=== PATIENT | female | born 1990 | race Caucasian/White ===

== ENCOUNTER 2018-05-22 17:05 | Emergency (ER) | payer SELFPAY ==
[~2018-05-22] VITALS: Ht 170.2 cm; Wt 54.4 kg
[~2018-05-22 17:05] MED LIST: LAMICTAL; VIMPAT100 MG; ZONEGRAN100 MG
--- OUTSIDE RECORDS SUMMARY | 2018-05-22 17:08 | XMS REPORT | Encounter Summary ---
Author Organization Unknown Address [address] [place] [address] Phone [phone] Care Team Providers Care Book Coverer Name Role Phone Conrado Venegas 3 [phone] Reason for Visit Medical Complaint Instructions 1. Dysuria urinalysis, dipstick painful urination (dysuria): care instructions Macrobid 100 mg capsule culture, urine CT + NG DNA, PCR, unspecified specimen Pyridium 100 mg tablet Discussion Note Pt in NAD, understands all information provided Plan of Care Patient Instructions Pt will take meds as prescribed with 8oz glass of water. Please seek care (PCP, Urgent Care, ER) or [facility] if symptoms get worse or do not resolve in 1 week. Reminders Provider Appointments None recorded. Lab Urinalysis, Dipstick 11/27/2016 [facility] Culture, Urine 11/27/[address] [facility] [address] + NG DNA, PCR, Unspecified Specimen 11/27/2016 [facility] Referral None recorded. Procedures None recorded. Surgeries None recorded. Imaging None recorded. Medications Name Start Date Jolivette 0.35 mg tablet TK 1 T PO QD Macrobid 100 mg capsule Take 1 capsule every 12 hours by oral route. Pyridium 100 mg tablet Take 1 tablet 3 times a day by oral route for 2 days. zonisamide 100 mg capsule TK 3 C PO QHS Medications Administered None recorded. Vitals Height Weight BMI Blood Pressure 5 ft 7 in 110 lbs 17.2 kg/m2 124/74 mm[Hg] Lab Results Date Name Specimen Result Interpretation Description Value Range Status Address Urinalysis, Dipstick Color : Yellow [facility]: [address] [place] [address] Clarity : Cloudy [facility]: [address] [place] [address] Leukocytes : Large [facility]: [address] [place] [address] Nitrites : Negative [facility]: [address] [place] [address] Urobilinogen : Normal [facility]: [address] [place] [address] Protein : 30 [facility]: [address] [place] [address] Ph : 7.5 [facility]: [facility] Blood : Non-hemolized Trace [facility]: [facility] Specific [place] : 1.005 [facility]: 9 [facility] Ketones : Negative [facility]: 9 [facility] Bilirubin : Small [facility]: 9 [facility] Glucose Negative [facility]: 9 [facility] Allergies Code Code System Name Reaction Severity Status Onset NKDA Problems None recorded. Procedures None recorded. Vaccine List None recorded. Social History Smoking Status Current Every Day Smoker Past Encounters 11/27/2016 Dysuria Arturo Ray, HOME ENERGY CONSULTANT-C: [address] [place] [address], Ph. History of Present Illness [id number] Reported By: Patient HPI: Location: no radiation. Quality: pressure. Context: not sexually active, no known exposure to STD, no prior history of STDs, unprotected intercourse. Associated Symptoms: no fever/chills, no flank pain, no jaundice, no blood in the urine, no vaginal discharge, no blisters on genitals, no rash on genitals, no muscle aches, no headache, pain during urination, burning sensation during urination, urgency, hesitancy, urinary frequency, feeling of incomplete emptying of bladder Review of Systems:ROS as noted in the HPI Review of Systems Basic Reported By: Patient Physical Exam Adult Basic, Adult Female Complete Reported By: Patient Constitutional: General Appearance: healthy-appearing, well-nourished, well-developed. Level of Distress: NAD. Ambulation: ambulating normally Psychiatric: Mental Status: active and alert. Orientation: to time, to place, to person Neurologic: Gait and Station: normal gait, normal station Abdomen: Inspection and Palpation: soft, non-distended, no tenderness, no guarding, no rebound tenderness, no masses, no CVA tenderness Female : External genitalia: normal, no lesions, no rash; pt denies all. Vagina: purulent discharge; pt states she has a white-yellow d/c. Bladder and Urethra: normal bladder and urethra (except where noted)
--- OUTSIDE RECORDS SUMMARY | 2018-05-22 17:08 | XMS REPORT | Continuity of Care Document ---
Author Author [facility] Interface Address Unknown Phone Unavailable Problems Problem Status Onset Date Classification Date Reported Comments Source Dysuria 11/27/2016 Diagnosis 11/27/2016 [facility] Exudative pharyngitis 06/26/2016 Diagnosis 06/27/2016 [facility] Influenza-like symptoms 06/26/2016 Diagnosis 06/27/2016 [facility] Medications Medication Details Route Status Patient Instructions Ordering Provider Order Date Source Jolivette 0.35 mg tablet Jolivette 0.35 mg tablet TK 1 T PO QD Active [facility] NITROFURANTOIN, MACROCRYSTALS 25 MG / Nitrofurantoin, Monohydrate 75 MG Oral Capsule [Macrobid] Macrobid 100 mg capsule Take 1 capsule every 12 hours by oral route. Active [facility] Phenazopyridine hydrochloride 100 MG Oral Tablet [Pyridium] Pyridium 100 mg tablet Take 1 tablet 3 times a day by oral route for 2 days. Active [facility] zonisamide 100 MG Oral Capsule zonisamide 100 mg capsule TK 3 C PO QHS Active [facility] Acetaminophen 300 MG / Codeine Phosphate 30 MG Oral Tablet acetaminophen 300 mg-codeine 30 mg tablet Active [facility] Amoxicillin 875 MG Oral Tablet amoxicillin 875 mg tablet Take 1 tablet every 12 hours by oral route for 10 days. Active [facility] Ciprofloxacin 500 MG Oral Tablet ciprofloxacin 500 mg tablet Active [facility] lamotrigine 25 MG Oral Tablet lamotrigine 25 mg tablet Active [facility] Levofloxacin 500 MG Oral Tablet levofloxacin 500 mg tablet Active [facility] Lidocaine Hydrochloride 20 MG/ML Mucous Membrane Topical Solution Lidocaine Viscous 2 % mucosal solution Gargle 15 ml by mouth every 3 hours prn and spit out. Active [facility] Sulfamethoxazole 800 MG / Trimethoprim 160 MG Oral Tablet sulfamethoxazole 800 mg-trimethoprim 160 mg tablet Active [facility] zonisamide 100 MG Oral Capsule [Zonegran] Zonegran 100 mg capsule TAKE THREE CAPSULES BY MOUTH EVERY EVENING AT BEDTIME Active [facility] Allergies, Adverse Reactions, Alerts Substance Category Reaction Severity Reaction type Status Date Reported Comments Source Immunizations Immunization Date Given Site Status Last Updated Comments Source Results Order Name Results Value Reference Range Date Interpretation Comments Source Urinalysis macro (dipstick) panel - Urine COLOR : Yellow 11/27/2016 [facility] Urinalysis macro (dipstick) panel - Urine CLARITY : Cloudy 11/27/2016 [facility] Urinalysis macro (dipstick) panel - Urine LEUKOCYTES : Large 11/27/2016 [facility] Urinalysis macro (dipstick) panel - Urine NITRITES : Negative 11/27/2016 [facility] Urinalysis macro (dipstick) panel - Urine UROBILINOGEN : Normal 11/27/2016 [facility] Urinalysis macro (dipstick) panel - Urine PROTEIN : 30 11/27/2016 [facility] Urinalysis macro (dipstick) panel - Urine pH : 7.5 11/27/2016 [facility] Urinalysis macro (dipstick) panel - Urine BLOOD : Non-hemolized Trace 11/27/2016 [facility] Urinalysis macro (dipstick) panel - Urine SPECIFIC GRAVITY : 1.005 11/27/2016 [facility] Urinalysis macro (dipstick) panel - Urine KETONES : Negative 11/27/2016 [facility] Urinalysis macro (dipstick) panel - Urine BILIRUBIN : Small 11/27/2016 [facility] Urinalysis macro (dipstick) panel - Urine GLUCOSE Negative 11/27/2016 [facility] Influenza A negative 06/26/2016 [facility] Influenza B negative 06/26/2016 [facility] RESULT negative 06/26/2016 [facility] SWAB LOCATION Left and Right tonsillar pillars 06/26/2016 [facility] Vital Signs Vital Sign Value Date Comments Source Diastolic (mm Hg) 74 11/27/2016 [facility] Height 67 11/27/2016 [facility] Systolic (mm Hg) 124 11/27/2016 [facility] Weight 110 11/27/2016 [facility] Diastolic (mm Hg) 77 06/26/2016 [facility] Height 67 06/26/2016 [facility] Systolic (mm Hg) 115 06/26/2016 [facility] Weight 115 06/26/2016 [facility] Encounters Location Location Details Encounter Type Encounter Number Reason For Visit Attending Provider ADM Date DC Date Status Source [place] - [id number] [place] Kinza Degroot LOG COOKER: [address], [address], [place] [address], Ph. [id number] Kinza Degroot 06/26/2016 [facility] ID - [facility] - [id number] Artuor Ray, OPERATIONS ADMINISTRATIVE ASSISTANT-C: [address] [place] [address], Ph. [id number] Arturo Ray 11/27/2016 [facility] Procedures Procedure Code Date Perfomer Comments Source
--- OUTSIDE RECORDS SUMMARY | 2018-05-22 17:08 | XMS REPORT | Encounter Summary ---
Author Organization Unknown Address [address] [place] [address] Phone [phone] Reason for Visit Medical Complaint Instructions 1. Exudative pharyngitis rapid strep group A, throat culture, throat amoxicillin 875 mg tablet Lidocaine Viscous 2 % mucosal solution 2. Influenza-like symptoms rapid flu (A+B) Discussion Note: None recorded. Patient educational handouts: No information available. Plan of Care Patient Instructions Strep Throat: Care Instructions Your Care Instructions Strep throat is a bacterial infection that causes sudden, severe sore throat and fever. Strep throat, which is caused by bacteria called streptococcus, is treated with antibiotics. Sometimes a strep test is necessary to tell if the sore throat is caused by strep bacteria. Treatment can help ease symptoms and may prevent future problems. Follow-up care is a perez part of your treatment and safety. Be sure to make and go to all appointments, and call your doctor if you are having problems. It's also a good idea to know your test results and keep a list of the medicines you take. How can you care for yourself at home? Take your antibiotics as directed. Do not stop taking them just because you feel better. You need to take the full course of antibiotics. Strep throat can spread to others until 24 hours after you begin taking antibiotics. During this time, you should avoid contact with other people at work or home, especially infants and children. Do not sneeze or cough on others, and wash your hands often. Keep your drinking glass and eating utensils separate from those of others, and wash these items well in hot, soapy water. Gargle with warm salt water at least once each hour to help reduce swelling and make your throat feel better. Use 1 teaspoon of salt mixed in 8 fluid ounces of warm water. Take an xmyy-fmr-fvbazyf pain medication, such as acetaminophen (Tylenol), ibuprofen (Advil, Motrin), or naproxen (Aleve). Read and follow all instructions on the label. Try an mzmh-kjr-ofmphim anesthetic throat spray or throat lozenges, which may help relieve throat pain. Drink plenty of fluids. Fluids may help soothe an irritated throat. Hot fluids, such as tea or soup, may help your throat feel better. Eat soft solids and drink plenty of clear liquids. Flavored ice pops, ice cream, scrambled eggs, sherbet, and gelatin dessert (such as Jell-O) may also soothe the throat. Get lots of rest. Do not smoke, and avoid secondhand smoke. If you need help quitting, talk to your doctor about stop-smoking programs and medicines. These can increase your chances of quitting for good. Use a vaporizer or humidifier to add moisture to the air in your bedroom. Follow the directions for cleaning the machine. When should you call for help? Call your doctor now or seek immediate medical care if: You have a new or higher fever. You have a fever with a stiff neck or severe headache. You have new or worse trouble swallowing. Your sore throat gets much worse on one side. Your pain becomes much worse on one side of your throat. Watch closely for changes in your health, and be sure to contact your doctor if: You are not getting better after 2 days (48 hours). You do not get better as expected. Where can you learn more? Go to www.[employer].Swogo, log into the web portal, and enter K625 in the search box to learn more about Strep Throat: Care Instructions. Care instructions adapted under license by [facility]. This care instruction is for use with your licensed healthcare professional. If you have questions about a medical condition or this instruction, always ask your healthcare professional. [employer] disclaims any warranty or liability for your use of this information. Reminders Provider Appointments None recorded. Lab Rapid Strep Group a, Throat 06/26/2016 [facility] Rapid Flu (A+B) 06/26/2016 [facility] Culture, Throat 06/26/2016 [facility] Referral None recorded. Procedures None recorded. Surgeries None recorded. Imaging None recorded. Medications Name Start Date acetaminophen 300 mg-codeine 30 mg tablet amoxicillin 875 mg tablet Take 1 tablet every 12 hours by oral route for 10 days. ciprofloxacin 500 mg tablet Jolivette 0.35 mg tablet lamotrigine 25 mg tablet levofloxacin 500 mg tablet Lidocaine Viscous 2 % mucosal solution Gargle 15 ml by mouth every 3 hours prn and spit out. sulfamethoxazole 800 mg-trimethoprim 160 mg tablet Zonegran 100 mg capsule TAKE THREE CAPSULES BY MOUTH EVERY EVENING AT BEDTIME Medications Administered None recorded. Vitals Height Weight BMI Blood Pressure 5 ft 7 in 115 lbs 18 115/77 Lab Results Date Name Specimen Result Interpretation Description Value Range Status Address Rapid Flu (A+B) Influenza a negative [facility]: [address] [place] [address] Influenza B negative [facility]: [address] [place] [address] Rapid Strep Group a, Throat Result negative [facility]: [facility] Swab Location Left and Right tonsillar pillars [facility]: [address] [place] [address] Allergies Code Code System Name Reaction Severity Onset NKDA Problems None recorded. Procedures None recorded. Vaccine List None recorded. Social History Smoking Status Current Every Day Smoker Past Encounters 06/26/2016 Exudative Pharyngitis; Influenza-like Symptoms Kinza Degroot, [facility]: [address] [address], [address], [place] [address], Ph. History of Present Illness Throat-Oral Complaint Reported By: Patient HPI: Location: throat. Quality: sore throat, congested. Severity: moderate. Duration: 1 days. Onset/Timing: sudden. Context: no sick contacts, no foreign travel, non-smoker. Modifying factors: OTC medication. Associated Symptoms: no sputum production, no shortness of breath, no wheezing, no change in number of pillows needed to sleep at night, no sweats, no significant weight gain, no significant weight loss, no morning cough, no vomiting, no diarrhea, no rash, no nausea, fever, body aches, sore throat Review of Systems Basic Reported By: Patient Constitutional: Constitutional: fever Eyes: Eyes: no eye complaints [id number]-Uadje-Throat: Ears: no ear complaints. Nose: nose/sinus problems. Mouth/Throat: no bleeding gums, no mouth complaints, no teeth problems, sore throat Cardiovascular: Cardiovascular: no chest pain, no shortness of breath, no known heart murmur Respiratory: Respiratory: no wheezing, no shortness of breath, cough Gastrointestinal: Gastrointestinal: no abdominal pain, no vomiting / diarrhea Genitourinary: Genitourinary: no urinary complaints, no discharge Musculoskeletal: Musculoskeletal: no muscle weakness, no arthralgias/joint pain, no back pain, muscle aches Skin: Skin: no abnormal / changing mole, no jaundice, no rashes Neurologic: Neurologic: no loss of consciousness, no weakness, no numbness, no seizures, no dizziness, no headaches Physical Exam Adult Basic, Adult Female Complete Reported By: Patient Constitutional: General Appearance: healthy-appearing, well-nourished, well-developed. Level of Distress: mild distress. Ambulation: ambulating normally Psychiatric: Mental Status: active and alert. Orientation: to time, to place, to person Bcp-[id number]-Upzkc-Throat: Ears: no lesions on external ear, no outer ear tenderness, EACs clear, TMs clear. Hearing: no hearing loss. Nose: no lesions on external nose, nares patent, no septal deviation, nasal passages clear, no sinus tenderness, nasal discharge. Lips, Teeth, and Gums: no mouth or lip ulcers, no bleeding gums, normal dentition. Oropharynx: moist mucous membranes, erythema, exudates, tonsils enlarged 2+ Neck: Neck: supple, trachea midline. Lymph Nodes: no supraclavicular LAD, anterior cervical LAD Lungs: Respiratory effort: no dyspnea, no tachypnea, no use of accessory muscles, no intercostal retractions. Auscultation: breath sounds normal; intermittent cough Cardiovascular: Heart Auscultation: RRR, no murmurs Neurologic: Gait and Station: normal gait, normal station
[2018-05-22 17:34] LABS: BASOPHILS % 0.3 % (0.0-1.0); EOSINOPHILS # (AUTO) 0.3 (0.0-0.4); EOSINOPHILS % 3.2 % (0.0-6.0); HEMATOCRIT 40.3 % (34.2-44.1); HEMOGLOBIN 13.2 g/dL (12.0-16.0); LYMPHOCYTES # (AUTO) 2.6 (1.0-3.2); LYMPHOCYTES % 33.2 % (18.0-39.1); MEAN CORPUSCULAR HEMOGLOBIN 28.6 pg (28-32); MEAN CORPUSCULAR HGB CONC 32.8 g/dL (31-35); MEAN CORPUSCULAR VOLUME 87.2 fL (81-99); MONOCYTES # (AUTO) 0.4 (0.2-0.8); MONOCYTES % 5.6 % (4.4-11.3); NEUTROPHILS # (AUTO) 4.6 (2.1-6.9); NEUTROPHILS % 57.4 % (38.7-80.0); PLATELET COUNT 292 x10e3/uL (140-360); RED BLOOD COUNT 4.62 x10e6/uL (3.6-5.1); RED CELL DISTRIBUTION WIDTH 13.5 % (11.7-14.4)
[2018-05-22 17:36] LABS: BILIRUBIN,URINE NEGATIVE (NEGATIVE); CLARITY,URINE CLEAR (CLEAR); COLOR,URINE YELLOW (YELLOW); KETONES,URINE NEGATIVE (NEGATIVE); LEUKOCYTE ESTERASE ,URINE NEGATIVE (NEGATIVE); NITRITE,URINE NEGATIVE (NEGATIVE); PROTEIN,URINE DIPSTICK NEGATIVE (NEGATIVE); URINE UROBILINOGEN 0.2 mg/dL (0.2 - 1)
[2018-05-22 17:37] LABS: PREGNANCY TEST, URINE NEGATIVE (NEGATIVE)
[2018-05-22 17:46] LABS: BACTERIA,URINE MANY /HPF; EPITHELIAL CELLS,URINE FEW /LPF; RBC,URINE 0-5 /HPF (0-5)
[2018-05-22 17:54] LABS: ALANINE AMINOTRANSFERASE 13 IU/L (0-55); ALBUMIN/GLOBULIN RATIO 1.4 (0.8-2.0); ALKALINE PHOSPHATASE 44 IU/L (40-150); ANION GAP 11.6 mmol/L (8-16); BLOOD UREA NITROGEN 9 mg/dL (7-26); BUN/CREATININE RATIO 13 (6-25); CALCIUM 8.7 mg/dL (8.4-10.2); CARBON DIOXIDE 24 mmol/L (22-29); CHLORIDE 103 mmol/L (98-107); CREATININE, SERUM 0.72 mg/dL (0.57-1.11); EST GLOMERULAR FILTRATION RATE > 60 ML/MIN (60-); GLUCOSE 86 mg/dL (74-118); POTASSIUM 3.6 mmol/L (3.5-5.1); SODIUM 135 mmol/L (136-145)
[2018-05-22 18:36] VITALS: BP 116/67
== END 2018-05-22 18:43 | disposition home or self-care (01) ==
LOC: ER 17:05
DX: R10.11 Right upper quadrant pain (principal); R11.0 Nausea; K80.50 Calculus of bile duct without cholangitis or cholecystitis without obstruction
CPT/HCPCS: 36415; 80053; 81001; 81025; 85025; 99283

== ENCOUNTER 2020-03-27 09:27 | Emergency (ER) | payer SELFPAY ==
[~2020-03-27] VITALS: Ht 170.2 cm; Wt 54.4 kg
[2020-03-27] MEDS ORDERED: KETOROLAC TROMETHAMINE 30 MG/ML VIAL IV STA (10:07)
[2020-03-27] MEDS ORDERED: ONDANSETRON HCL INJ 2MG/ML 2ML 2 MG/ML VIAL IV STA (10:07)
[2020-03-27] MEDS ORDERED: SODIUM CHLORIDE 0.9% 1000ML 1,000 ML IV STA (10:07)
[2020-03-27] MEDS ORDERED: MORPHINE SULFATE INJ 4 MG/ML INJ 1ML IV STA (10:19)
[2020-03-27 10:26] LABS: BASOPHILS % 0.6 % (0.0-1.0); EOSINOPHILS # (AUTO) 0.4 (0.0-0.4); EOSINOPHILS % 5.4 % (0.0-6.0); HEMATOCRIT 43.1 % (34.2-44.1); HEMOGLOBIN 14.1 g/dL (12.0-16.0); LYMPHOCYTES # (AUTO) 2.5 (1.0-3.2); LYMPHOCYTES % 37.2 % (18.0-39.1); MEAN CORPUSCULAR HGB CONC 32.7 g/dL (31-35); MEAN CORPUSCULAR VOLUME 85.5 fL (81-99); MONOCYTES # (AUTO) 0.4 (0.2-0.8); MONOCYTES % 5.4 % (4.4-11.3); NEUTROPHILS # (AUTO) 3.5 (2.1-6.9); NEUTROPHILS % 51.3 % (38.7-80.0); PLATELET COUNT 326 x10e3/uL (140-360); RED BLOOD COUNT 5.04 x10e6/uL (3.6-5.1)
[2020-03-27 10:36] LABS: AMPHETAMINES SCREEN,URINE NEGATIVE (NEGATIVE); BENZODIAZEPINES SCREEN,URINE NEGATIVE (NEGATIVE); PHENCYCLIDINE SCREEN,URINE NEGATIVE (NEGATIVE)
[2020-03-27 10:37] LABS: COLOR,URINE YELLOW (YELLOW)
[2020-03-27 10:38] LABS: CLARITY,URINE CLEAR (CLEAR); KETONES,URINE NEGATIVE (NEGATIVE); LEUKOCYTE ESTERASE ,URINE NEGATIVE (NEGATIVE); NITRITE,URINE NEGATIVE (NEGATIVE); PROTEIN,URINE DIPSTICK NEGATIVE (NEGATIVE); URINE UROBILINOGEN 0.2 mg/dL (0.2 - 1)
[2020-03-27 10:41] LABS: ALANINE AMINOTRANSFERASE 6 IU/L (0-55); ALBUMIN 4.6 g/dL (3.5-5.0); ALBUMIN/GLOBULIN RATIO 1.5 (0.8-2.0); ALKALINE PHOSPHATASE 49 IU/L (40-150); ANION GAP 13.8 mmol/L (8-16); BLOOD UREA NITROGEN 14 mg/dL (7-26); BUN/CREATININE RATIO 18 (6-25); CALCIUM 9.3 mg/dL (8.4-10.2); CARBON DIOXIDE 27 mmol/L (22-29); CHLORIDE 105 mmol/L (98-107); CREATINE KINASE 29 IU/L (29-168); CREATININE, SERUM 0.79 mg/dL (0.57-1.11); EST GLOMERULAR FILTRATION RATE > 60 ML/MIN (60-); GLUCOSE 106 mg/dL (74-118); INR 0.95; POTASSIUM 3.8 mmol/L (3.5-5.1); PROTHROMBIN TIME 13.2 seconds (11.9-14.5); SODIUM 142 mmol/L (136-145)
[2020-03-27 10:42] LABS: PARTIAL THROMBOPLASTIN TIME 28.9 seconds (23.8-35.5)
[2020-03-27 10:43] LABS: BACTERIA,URINE RARE /HPF; EPITHELIAL CELLS,URINE FEW /LPF; RBC,URINE 0-5 /HPF (0-5); WBC,URINE (MAN) 0-5 /HPF (0-5)
[2020-03-27] MEDS ORDERED: SODIUM CHLORIDE 0.9% 50ML 50 ML ONE (10:58)
[2020-03-27] MEDS ORDERED: IOPAMIDOL 370 MG/ML 200 ML INFUS..BTL INJ ONE (10:58)
[2020-03-27 11:17] LABS: THYROID STIMULATING HORMONE 1.161 uIU/mL (0.350-4.940)
[2020-03-27] MEDS ORDERED: ROBAXIN-750750 MG PO (11:48)
[2020-03-27] MEDS ORDERED: ULTRAM 50MG50 MG PO (11:48)
[2020-03-27 11:59] VITALS: BP 122/82
== END 2020-03-27 11:56 | disposition home or self-care (01) ==
LOC: ER 10:13
DX: M54.5 Low back pain (principal); G40.909 Epilepsy, unspecified, not intractable, without status epilepticus; R94.31 Abnormal electrocardiogram [ECG] [EKG]; F17.210 Nicotine dependence, cigarettes, uncomplicated
CPT/HCPCS: 36415; 71045; 72132; 80053; 80307; 81001; 81025; 82550; 82553; 83735; 84443; 84484; 85025; 85379; 85610; 85730; 87040; 87086; 93005; 99283; J1885; J2270; J2405; J7030; Q9967

== ENCOUNTER 2020-06-16 19:38 | Emergency (ER) | payer SELFPAY ==
[~2020-06-16] VITALS: Ht 170.2 cm; Wt 54.4 kg
[~2020-06-16 19:38] MED LIST changes: +ROBAXIN-750750 MG PO; +ULTRAM 50MG50 MG PO
[2020-06-16 22:26] VITALS: BP 120/77
== END 2020-06-16 22:27 | disposition home or self-care (01) ==
LOC: ER 20:34
DX: M54.12 Radiculopathy, cervical region (principal); G40.909 Epilepsy, unspecified, not intractable, without status epilepticus; M54.9 Dorsalgia, unspecified; G89.29 Other chronic pain
CPT/HCPCS: 70450; 72125; 81025; 99283

== ENCOUNTER 2020-08-11 15:21 | Emergency (ER) | payer SELFPAY ==
[~2020-08-11] VITALS: Ht 170.2 cm; Wt 49.9 kg
== END 2020-08-11 17:40 | disposition home or self-care (01) ==
LOC: FSED 15:55
DX: S93.402A Sprain of unspecified ligament of left ankle, initial encounter (principal); M25.562 Pain in left knee; W10.9XXA Fall (on) (from) unspecified stairs and steps, initial encounter; Y93.01 Activity, walking, marching and hiking; Y92.008 Other place in unspecified non-institutional (private) residence as the place of occurrence of the external cause; G40.909 Epilepsy, unspecified, not intractable, without status epilepticus; M54.9 Dorsalgia, unspecified; G89.29 Other chronic pain
CPT/HCPCS: 99283

== ENCOUNTER 2023-11-27 10:02 | Emergency (ER) | payer MEDICARE, OTHER ==
[~2023-11-27] VITALS: Ht 167.6 cm; Wt 54.4 kg
[~2023-11-27 10:02] MED LIST changes: +BENZONATATE100 MG PO
[2023-11-27 10:15] VITALS: PULSE 84; RESP 16; TEMP 98.1; O2SAT 100
[2023-11-27 11:37] LABS: CLARITY,URINE SL CLOUDY (CLEAR); COLOR,URINE YELLOW (YELLOW); PH,URINE 7.5 (5 - 7)
[2023-11-27 11:38] LABS: BILIRUBIN,URINE NEGATIVE (NEGATIVE); GLUCOSE, URINE NEGATIVE (NEGATIVE); KETONES,URINE NEGATIVE (NEGATIVE); LEUKOCYTE ESTERASE ,URINE NEGATIVE (NEGATIVE); NITRITE,URINE NEGATIVE (NEGATIVE); PROTEIN,URINE DIPSTICK NEGATIVE (NEGATIVE); URINE UROBILINOGEN 0.2 mg/dL (0.2 - 1)
[2023-11-27 11:43] LABS: WBC,URINE (MAN) 0-5 /HPF (0-5)
[2023-11-27 11:47] LABS: BACTERIA,URINE FEW /HPF
[2023-11-27 11:48] LABS: EPITHELIAL CELLS,URINE MODERATE /LPF
[2023-11-27] MEDS ORDERED: MACROBID 100 M100 MG PO (13:34)
[2023-11-27 13:50] VITALS: BP 122/82; PULSE 84; RESP 18; TEMP 98.2
== END 2023-11-27 13:52 | disposition home or self-care (01) ==
LOC: ER 10:08
DX: O26.891 Other specified pregnancy related conditions, first trimester (principal); R82.71 Bacteriuria; R10.30 Lower abdominal pain, unspecified
CPT/HCPCS: 81001; 99283